=== PATIENT | male | born 1945 | race Caucasian/White ===

== ENCOUNTER 2020-02-19 11:02 | Outpatient (REF) | payer MEDICARE, OTHER, SELFPAY ==
--- NOTE | 2020-02-19 | PFT_ITS ---
INDICATION: Dyspnea. SPIROMETRY: The FEV1 to FVC is 73% with an FEV1 of 2.42 L which is 82% predicted and an FVC of 3.3 L which is 82% predicted. No significant response to bronchodilators noted. Maximum voluntary ventilation 71% predicted. LUNG VOLUMES: Total lung capacity 91% predicted. With an expiratory reserve volume of 22% predicted, likely secondary to an elevated BMI. DIFFUSION CAPACITY: DLCO 78% predicted. FLOW VOLUME LOOP: There is slight concavity to the expiratory limb suggestive of an obstructive process. INTERPRETATION: No definitive obstructive ventilatory defect. No significant response to bronchodilators noted. However, the patient does have a slight concavity to the expiratory limb suggesting an obstructive physiology. The lung volumes are within normal limits, except for decrease in the expiratory reserve volume secondary to an elevated BMI. The patient also has mild diffusion impairment, otherwise clinical correlation warranted. Alexys Okeefe MD MR/MODL / [id number]
== END 2020-02-19 11:03 | disposition home or self-care (01) ==
LOC: HO.RESP 11:02
PROVIDERS: Visit Provider Hospitalist
DX: J41.0 Simple chronic bronchitis (principal)
CPT/HCPCS: 94060; 94727; 94729

== ENCOUNTER → 2020-03-26 08:52 | Outpatient (BNVA) | payer MEDICARE, OTHER, SELFPAY | PROVIDERS: PCP Internal Medicine; Visit Provider Hospitalist | DX: J44.9 Chronic obstructive pulmonary disease, unspecified (principal); R91.1 Solitary pulmonary nodule; I25.10 Atherosclerotic heart disease of native coronary artery without angina pectoris; Z79.82 Long term (current) use of aspirin; Z79.899 Other long term (current) drug therapy | CPT/HCPCS: Q3014 ==

== ENCOUNTER → 2020-05-10 14:38 | Outpatient (BNVA) | payer MEDICARE, OTHER, SELFPAY | PROVIDERS: PCP Internal Medicine; Visit Provider Hospitalist | DX: Z13.89 Encounter for screening for other disorder (principal) | CPT/HCPCS: Q3014 ==

== ENCOUNTER 2020-05-21 09:07 | Outpatient (REF) | payer MEDICARE, OTHER, SELFPAY ==
--- NOTE | 2020-05-21 07:43 | PE_ITS ---
EXAMINATION: Fluorine-18 FDG PET/CT Scan CLINICAL INDICATION: Initial treatment management. Pulmonary nodule. PROCEDURE: 75 minutes following the intravenous administration of 19.1 mCi of fluorine 18 FDG, images from the base of the skull to the mid thighs were obtained using a combined PET/CT scanner with CT scan based attenuation correction. No intravenous contrast was administered. No oral contrast was administered. Transverse, coronal, sagittal, and volume reconstruction projections were obtained. The patient's blood glucose as determined by a finger stick, was 120 mg/dl immediately prior to injection. Total CT exam dose-length product 191.72 mGy-cm * These CT images were obtained using dose optimization techniques as appropriate, variously including the following: Automated exposure control * Adjustment of mA and/or kV according to patient size (this includes techniques or standardized protocols for targeted exams where dose is matched to indication/reason for exam; i.e. extremities or head) * Use of iterative reconstruction technique COMPARISON: A limited FDG cardiac PET/CT dated 09/11/2019 is available for comparison. No previous FDG skull base to mid thigh PET/CT scan is available for comparison. CT scan of the chest dated 05/08/2020 is available for comparison. FINDINGS: (Slice numbers described in this report are numbered superiorly to inferiorly with slice #1 in the head) NECK AND VISUALIZED HEAD: No foci of abnormal FDG activity are noted. The distribution of FDG activity is physiological. There is no cervical lymphadenopathy. THORAX: There is a pleural-based irregular nodule abutting the posterior pleura of the right lower lobe which show weak FDG activity, SUVmax 1.8, slice 92/267. This nodule measures approximately 1.7 x 0.8 cm in largest transverse dimensions on the CT images and approximately 1.0 cm cephalocaudad. It does not appear significantly changed from the 05/08/[address] scan. No additional pulmonary nodules are visualized. There are no additional foci of abnormally increased FDG activity in the chest. There is some atelectasis anterolaterally in the left upper lobe extending to the pleura with weak FDG activity, SUVmax 1.3, slice 89/267. This is new since 05/08/2020. No additional foci of abnormal FDG activity are present in the chest. No mediastinal, supraclavicular, or axillary lymphadenopathy is present. A left anterior chest pacemaker and associated leads are noted. This causes significant beam hardening artifact in adjacent regions of the chest. There is no pleural or pericardial fluid, or pneumothorax. ABDOMEN AND PELVIS: No foci of abnormal FDG activity are present in the abdomen or pelvis. There is diffuse FDG activity of varying intensities throughout the gastrointestinal tract without a suspicious focal component, likely physiological. There is diverticulosis without evidence of diverticulitis. The hollow viscera are otherwise unremarkable. The liver and spleen are unremarkable. The gallbladder has been resected and there are multiple metallic clips in the gallbladder bed. There is a 3.4 cm hypodense cyst present posterolaterally in the lower pole of the right kidney and a 3.0 hyperdense cyst posteromedially in the lower pole of the left kidney. Both of these are markedly FDG photopenic. The cysts are unchanged from the 05/08/2020 CT scan, and the report of that study indicates the hyperdense cyst was compatible with a renal cyst on prior renal mass protocol CT, but that study is not available for review. The left kidney is mildly atrophic contains a hypodense exophytic 2.2 cm cyst extending anterolaterally off the lower pole, markedly FDG photopenic, but this kidney is otherwise unremarkable. The adrenal glands and pancreas are unremarkable. The prostate is enlarged and bulges into the base of the urinary bladder and measures 6.1 cm in largest transverse dimensions. The pelvic organs are otherwise unremarkable. There is no retroperitoneal, mesenteric, pelvic or inguinal lymphadenopathy. MUSCULOSKELETAL: No foci of abnormal FDG activity are present in the osseous structures. There are diffuse degenerative changes in the spine most prominently a bridging osteophyte across the anterior aspect of the T7-T8 disc space at that the L4-L5 disc space. No suspicious sclerotic or lytic lesions are visualized. VASCULAR: Diffuse vascular calcifications including dense coronary calcifications are noted. 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 PET/PET CT fusion skull to thigh IMPRESSION: 1. The previously visualized posterior pleural-based right lower lobe pulmonary nodule shows weak FDG activity, suggesting a benign etiology. However because approximately 10% of pulmonary malignancies demonstrate no abnormal FDG activity, if biopsy of this nodule is not obtained, followup with diagnostic CT scan in 3 months is recommended. 2. A small new region of atelectasis in the left upper lobe has developed since the prior 05/18/2020 CT scan and is nonspecific. 3. Bilateral renal cysts are present and all are photopenic on the FDG PET images and probably represent simple cysts. Correlation with prior renal mass CT referred to in the report of the 05/08/2020 CT of the chest, but not available for review, is recommended to determine stability of these lesions. 4. No additional abnormalities suspicious for metastatic or other malignant lesions are noted. 5. Diffuse vascular calcifications including dense coronary calcifications and aneurysmal dilatation of the right common iliac artery are noted.
== END 2020-05-21 09:08 | disposition home or self-care (01) ==
LOC: HO.PET 09:07
PROVIDERS: Visit Provider Hospitalist
DX: Z13.89 Encounter for screening for other disorder (principal)

== ENCOUNTER → 2020-05-27 09:29 | Outpatient (BNVA) | payer MEDICARE, OTHER, SELFPAY | PROVIDERS: PCP Internal Medicine; Visit Provider Hospitalist | DX: R91.8 Other nonspecific abnormal finding of lung field (principal); J41.8 Mixed simple and mucopurulent chronic bronchitis; R91.1 Solitary pulmonary nodule; N28.9 Disorder of kidney and ureter, unspecified | CPT/HCPCS: 99212 ==

== ENCOUNTER 2020-11-25 10:00 | Outpatient (REF) | payer MEDICARE, OTHER, SELFPAY ==
--- NOTE | ~2020-11-25 | CT_ITS ---
EXAMINATION: CT CHEST WITHOUT CONTRAST CLINICAL INFORMATION: Follow-up pulmonary nodule COMPARISON: Outside chest CT May 2020 and PET/CT May 2020 TECHNIQUE: Multidetector volumetric CT imaging of the chest was done. Axial MIP volume rendering provided. Sagittal and coronal reformatted images were obtained. This CT examination was performed using dose optimization techniques as appropriate, variously including the following: *Automated exposure control *Adjustment of mA and/or kV according to patient size (this includes techniques or standardized protocols for targeted exams where dose is matched to indication/reason for exam; i.e. extremities or head) *Use of iterative reconstruction technique DLP: 265 mGy-cm FINDINGS: LUNGS: The peripheral or subpleural semisolid irregularly-shaped nodule in the right lower lobe measures 1.6 x 2.3 cm axial image 243 series 7 compared to maximum 1.4 x 2.1 cm by my measurements axial image 60 series 301/07/2020 exam. Differences in measurements may be due to a difference in slice thickness. The lesion appears less dense on the current exam however this may be due to difference in slice thickness as well. There may be a 2 mm peripheral or subpleural right lower lobe axial image 235 series 7 that is stable. There is a 3 mm right upper lobe nodule axial image 42 series 7 that is stable. There is scarring or subsegmental atelectasis at the lung bases. No endobronchial or endotracheal lesion is seen. MEDIASTINUM: The heart is upper normal in size. There is a left subclavian defibrillator that appears unchanged. There is severe coronary artery calcification. There is no pericardial effusion. The aorta is normal in caliber. There are no enlarged hilar or mediastinal lymph nodes. PLEURA: There is no pleural effusion. No pleural mass or thickening. AXILLA: No lymphadenopathy. UPPER ABDOMEN: The gallbladder has been removed. There are calcifications in the pancreas suggestive of chronic pancreatitis. There is higher low-attenuation renal lesions probably representing simple and hyperdense cysts that are stable. There are multiple calcifications are outside the upper pole the right kidney that are stable. There is diverticulosis of the colon. OSSEOUS STRUCTURES: There are degenerative changes of the spine. CT/CT chest wo con IMPRESSION: Question slight interval increase in size and decrease in density in the the irregularly-shaped peripheral or subpleural nodule in the right lower lobe. Differential in measurement and density may be due to difference in available slice thickness on outside exam May 2020. Severe coronary artery calcification and slightly enlarged heart. Stable abdominal findings.
== END 2020-11-25 10:01 | disposition home or self-care (01) ==
LOC: HO.CT 10:00
PROVIDERS: Visit Provider Hospitalist
DX: R91.8 Other nonspecific abnormal finding of lung field (principal)
CPT/HCPCS: 71250

== ENCOUNTER → 2020-12-24 09:56 | Outpatient (BNVA) | payer MEDICARE, OTHER, SELFPAY | PROVIDERS: PCP Internal Medicine; Visit Provider Hospitalist | DX: R91.8 Other nonspecific abnormal finding of lung field (principal); J41.8 Mixed simple and mucopurulent chronic bronchitis; N28.9 Disorder of kidney and ureter, unspecified | CPT/HCPCS: 99212 ==

== ENCOUNTER 2021-02-25 09:51 | Outpatient (REF) | payer MEDICARE, OTHER, SELFPAY ==
--- NOTE | ~2021-02-25 | CT_ITS ---
EXAMINATION: CT CHEST WITHOUT CONTRAST CLINICAL INFORMATION: Follow-up pulmonary nodules COMPARISON: Previous chest CT October [address] May 2020 and PET/CT May 2020 and September 2019 TECHNIQUE: Multidetector volumetric CT imaging of the chest was done. Axial MIP volume rendering provided. Sagittal and coronal reformatted images were obtained. This CT examination was performed using dose optimization techniques as appropriate, variously including the following: *Automated exposure control *Adjustment of mA and/or kV according to patient size (this includes techniques or standardized protocols for targeted exams where dose is matched to indication/reason for exam; i.e. extremities or head) *Use of iterative reconstruction technique DLP: mGy-cm FINDINGS: SENIOR SOFTWARE MANAGER: 246 LUNGS: The heterogeneous or semisolid peripheral right lower lobe nodule does not appear appreciably changed in size from most recent exam October 2020. This measures 1.4 x 2.3 cm axial image 274 series 7. This is irregularly-shaped and has a cystic, groundglass attenuation and small denser more solid-appearing areas. Again, this is decreased in density and increased in size compared to prior exams from earliest available CT May 2020. Other small pulmonary nodules are stable. There is subsegmental atelectasis in the inferior segment of the lingula that is stable. There is compressive atelectasis of the medial right lower lobe adjacent to vertebral body bony osteophyte that is stable. MEDIASTINUM: The heart is upper normal in size. There is a left subclavian AICD. There is severe coronary artery calcification. There is no pericardial effusion. There are no enlarged hilar or mediastinal lymph nodes. The visualized thyroid gland is unremarkable. PLEURA: There is no pleural effusion. No pleural mass or thickening. AXILLA: There are small bilateral axillary lymph nodes. No chest wall mass or enlarged lymph nodes are seen. UPPER ABDOMEN: There is a 2.8 cm high attenuation right renal lesion probably representing a hyperdense cyst that is stable. There are additional smaller low-attenuation right renal lesions probably representing cysts that are stable as well. There is calcification in the pancreas suggestive of chronic pancreatitis. There are calcifications adjacent to the upper pole the right kidney and right lobe of the liver that are stable. The gallbladder is been removed. There is diverticulosis of the colon. OSSEOUS STRUCTURES: There are degenerative changes of the spine. There are old left rib fractures. CT/CT chest wo con IMPRESSION: Stable heterogeneous right lower lobe nodule from most recent exam October 2020 compared. Again, compared to older exams this is slightly increased in size and decreased in density. Other small pulmonary nodules are stable. Severe coronary artery calcification. Left subclavian AICD device. Stable abdominal findings.
== END 2021-02-25 09:52 | disposition home or self-care (01) ==
LOC: HO.CT 09:51
PROVIDERS: Visit Provider Hospitalist
DX: R91.8 Other nonspecific abnormal finding of lung field (principal)
CPT/HCPCS: 71250

== ENCOUNTER → 2021-04-16 10:18 | Outpatient (BNVA) | payer MEDICARE, OTHER, SELFPAY | PROVIDERS: PCP Internal Medicine; Visit Provider Hospitalist | DX: R91.8 Other nonspecific abnormal finding of lung field (principal) | CPT/HCPCS: Q3014 ==

== ENCOUNTER 2021-08-12 09:09 | Outpatient (REF) | payer MEDICARE, OTHER, SELFPAY ==
--- NOTE | ~2021-08-12 | CT_ITS ---
EXAMINATION: CT CHEST WITHOUT CONTRAST CLINICAL INFORMATION: Solitary pulmonary nodule COMPARISON: CT chest 02/25/2021, 11/25/2020, 05/08/2020, PET/CT 05/21/2020 TECHNIQUE: Multidetector volumetric CT imaging of the chest was done. Axial MIP volume rendering provided. Sagittal and coronal reformatted images were obtained. This CT examination was performed using dose optimization techniques as appropriate, variously including the following: *Automated exposure control *Adjustment of mA and/or kV according to patient size (this includes techniques or standardized protocols for targeted exams where dose is matched to indication/reason for exam; i.e. extremities or head) *Use of iterative reconstruction technique DLP: 241 mGy-cm FINDINGS: CHEST WALL/AXILLA: No axillary lymphadenopathy. Left chest wall single lead cardiac AICD lead terminating in the right ventricle. LUNGS: Respiratory motion on today's exam somewhat limits evaluation. When accounting for motion on today's exam stable 4 mm solid right middle lobe pulmonary nodule, 5:339, previously 4 mm. Stable 4 mm subpleural right upper lobe pulmonary nodule unchanged from prior, 5:122, previously 4 mm. The right lower lobe groundglass pulmonary nodule measures approximately 1.6 x 1.4 cm, previously 1.8 x 1.4 cm, and appears decreased in density with no solid components appreciated on today's exam, although today's exam is motion degraded. MEDIASTINUM: Heart is normal in size. No mediastinal lymphadenopathy. Lack of intravenous contrast limits assessment for hilar adenopathy. High attenuation along the course of the coronary arteries may reflect comminution of coronary artery calcification and coronary artery stents. PLEURA: There is no pleural effusion. UPPER ABDOMEN: Partially imaged hyperdense 2.9 cm right renal lesion not appreciably changed from prior, previously photopenic on prior PET/CT which may reflect a hyperdense renal cyst, which could be confirmed with a renal ultrasound. Few stable calcifications are noted adjacent to the posterior margin of the right hepatic lobe unchanged from prior, also previously photopenic. Subcentimeter peripherally calcified exophytic right renal lesion may reflect a peripherally calcified cyst although is overall too small to definitively characterize. Status post cholecystectomy. OSSEOUS STRUCTURES: Remote left rib fracture deformities. CT/CT chest wo con IMPRESSION: Respiratory motion on today's exam somewhat limits evaluation. The right lower lobe groundglass pulmonary nodule measures approximately 1.6 cm, similar to possibly slightly decreased in size from prior where it measured 1.8 cm when measured in a similar fashion and appears decreased in density with no solid components appreciated on today's exam, although today's exam is motion degraded which limits accuracy of this comparison. Recommend continued imaging surveillance. Remainder small solid pulmonary nodules measuring up to 4 mm are unchanged from prior. Partially imaged hyperdense 2.9 cm right renal lesion not appreciably changed from prior, previously photopenic on prior PET/CT which may reflect a hyperdense renal cyst, which could be confirmed with a renal ultrasound.
== END 2021-08-12 09:10 | disposition home or self-care (01) ==
LOC: HO.CT 09:09
PROVIDERS: PCP Internal Medicine; Visit Provider Hospitalist
DX: R91.1 Solitary pulmonary nodule (principal); Z95.810 Presence of automatic (implantable) cardiac defibrillator
CPT/HCPCS: 71250

== ENCOUNTER → 2022-05-25 14:03 | Outpatient (BNVA) | payer MEDICARE, OTHER, SELFPAY | PROVIDERS: PCP Internal Medicine; Visit Provider Hospitalist | DX: J41.8 Mixed simple and mucopurulent chronic bronchitis (principal); R91.1 Solitary pulmonary nodule; N28.9 Disorder of kidney and ureter, unspecified | CPT/HCPCS: 99212 ==

== ENCOUNTER 2022-08-03 10:20 | Outpatient (REF) | payer MEDICARE, OTHER, SELFPAY ==
--- NOTE | ~2022-08-03 | CT_ITS ---
EXAMINATION: CT CHEST WITHOUT CONTRAST CLINICAL INFORMATION: Other nonspecific abnormal finding of lung field. COMPARISON: None available. TECHNIQUE: Multidetector volumetric CT imaging of the chest was done. Axial MIP volume rendering provided. Sagittal and coronal reformatted images were obtained. This CT examination was performed using dose optimization techniques as appropriate, variously including the following: *Automated exposure control *Adjustment of mA and/or kV according to patient size (this includes techniques or standardized protocols for targeted exams where dose is matched to indication/reason for exam; i.e. extremities or head) *Use of iterative reconstruction technique DLP: 230 mGy-cm FINDINGS: LUNGS: The exam is limited due to respiratory motion artifact. The pulmonary nodules are stable. Largest pulmonary nodule is a heterogeneous right lower lobe nodule measuring 1.7 cm, axial image 355 series 5. This does not appear appreciably changed. There is right lower lobe bronchial wall thickening. No endobronchial or endotracheal lesion. MEDIASTINUM: Left subclavian AICD device with tip projecting over the ventricular apex. Upper normal heart size. Severe coronary artery calcification. No pericardial effusion. No enlarged hilar or mediastinal lymph nodes. Normal caliber thoracic aorta. CORONARY ARTERY CALCIFICATION: Severe PLEURA: There is no pleural effusion. No pleural mass or thickening. AXILLA: No lymphadenopathy. UPPER ABDOMEN: Post cholecystectomy. Stable calcifications adjacent to the right lobe of the liver and right kidney. Stable 2.8 cm high attenuation right renal lesion probably representing a hyperdense cyst. Stable smaller right renal simple cysts. Small calcifications in the pancreas suggestive of evidence of chronic pancreatitis. Diverticulosis. OSSEOUS STRUCTURES: Degenerative changes of the spine. CT/CT chest wo IV con IMPRESSION: Limited exam due to respiratory motion. Stable pulmonary nodules. Mild right lower lobe bronchial wall thickening. Fleischner guidelines were followed.
== END 2022-08-03 10:21 | disposition home or self-care (01) ==
LOC: HO.CT 10:20
PROVIDERS: PCP Internal Medicine; Visit Provider Hospitalist
DX: R91.8 Other nonspecific abnormal finding of lung field (principal)
CPT/HCPCS: 71250

== ENCOUNTER 2023-05-25 11:03 | Outpatient (AMB) | payer MEDICARE, OTHER, SELFPAY ==
--- NOTE | 2023-05-25 11:12 | A.OFFVIS_ITS ---
Intake Vital Signs 05/25/23 11:13 Height 5 ft 9 in Weight 220 lb BMI 32.5 Pulse 89 Pulse Source Pulse Oximeter Pulse Oximetry (%) 95 Oxygen Delivery Method Room Air Intake Visit Reasons: Pulm Nodule All Around Presser Required: No Allergies codeine Allergy (Severe, Verified 05/25/23 11:14) Hallucinations HPI HPI Comments History of Present Illness Details The patient is 77-year-old gentleman known history CAD, renal cancer status post nephrectomy and COPD. Apparently back in August the patient did undergo a ICD placement while he was having sustained V-tach. Subsequently in October the patient has an EMS called to his home because firing of the ICD. He was admitted to [facility] where he had mapping and ultimately had ablation of his heart in a replacement lead to the ICU. Overall his respiratory status has been improving. He did undergo a cardiac PET to further address his cardiomyopathy. It did case picker at 9 mm pulmonary nodule in his right lower lobe that was mildly PET avid with an SUV of 1.1. Patient has been coughing more after his ablation procedure. Is been congested with some mucus production. The mucus is clear to yellow. Eyuc-lq-crbqsuxy severity he has also been noticing some wheezing at nighttime. 03/26/2020 the patient has a telephone v isit. Overall the patient has been doing well. He is responding well to the respiratory therapy. Still has some dyspnea on exertion. Mild in severity. Has been staying home because of the COVID-19 infections. In the meantime we talked about his previous CT scan of the chest. He has underlying pulmonary nodules that need follow-up. His primary care doctor did request 1 but the patient was concerned about leaving his house. Therefore we will reschedule the CT scan for early 2020. Hopefully by then he should be able to have his CT scan safely. In the meantime he is going to continue with the current respiratory regimen. Otherwise the patient has no other complaints. 05/10/2020 the patient is a telephone vi sit today. Overall the patient has been doing well from a respiratory status. He did undergo a CT scan of the chest demonstrating interval worsening of his pulmonary nodule in addition to new nodules also developing in same area the right lower lobe, measuring 2.1 cm and 1.4 cm respectively. In addition to that appears to have a renal lesion that may be increasing in size as well. All these findings are concerning. The patient also has significant cardiac disease and therefore is high risk for any surgical or his invasive interventions. Therefore I believe performing a PET scan to assess these nodular densities in to figure out the best place to biopsy with high see you will be important. The patient was supposed to undergo a orthopedic surgical intervention. My recommendation is for him to hold off any elective surgeries up to a complete evaluation of his worsening pulmonary nodules which are very concerning for cancer. 09[facility] Overall he is feeling okay. Continues to have a ongoing cough. Moderate severity. At times is productive. Usually white phlegm. He has been on multiple inhalers in the past. He is not interested in having maintenance inhalers at this time. He is willing to take a rescue inhaler in case he has any worsening symptoms. He also had his PET scan. We personally reviewed here in the office. The largest nodule which is in the right lower lobe measuring 2.1 cm found to have a low FDG suggesting a benign process or a smoldering cancer. At this point the area had grown in size and it subsolid in nature. Therefore, will have a repeat CT scan in 6 months to see if there is any worsening. If there is any increased size of the nodular density independent of the PET scan the patient should undergo some type of diagnostic intervention. He also underlying renal cyst. The PET scan was reassuring with the renal findings. However, he should follow up with his urologist. Otherwise patient is without any complaints. 12/24/2020 the patient is here for a [facility] follow[facility] visit. Overall the patient has been doing well. He continues to have a cough but yakw-uk-nnzkqnaa severity. He has been sedentary lately. He has gained some weight. He has not been as active as he should. We did talk about his weight gain being an an issue that could potentially make his breathing worse. He does have issues with his knees. In the meantime he did undergo a CT scan of the chest that we personally reviewed. It appears that the nodular density in the right hemithorax is changing. It appeared increase in size longitudinally but appears to have decrease in his width. However, smoldering malignancies still in differential. I will have him repeat CT scan in 3 months. In the meantime I will discuss him in the lung cancer screening program. In the meantime also w ill provide him with inhaled cortical steroid in case is an inflammatory process and I will mail her blood work for him to have looking for inflammatory conditions. Follow-up in [address] if the tumor conference feels otherwise will make the recommendations clear to the patient and his . 04/16/2021 the patient has a telehealth visit today. He had a regular appointment but he started developing URI like symptoms. He was COVID tested which was negative. He does have a congested cough with yellow phlegm. Prki-tu-jrcoseag severity. He has been taking cfgk-bfb-qvthije cough syrup. He denies any fevers or chills. In meantime back in January he did get a CT scan of the chest to further address the pulmonary nodule in the right hemithorax. It appears that the nodule has not changed since last CT scan 3 months ago. This is reassuring although this nodule has had some interval changes throughout the year. Therefore will follow-up with a CT scan in 6 months. In the meantime was in a Z-Robe disease in case he is developing a bacterial infection he is able to treat that. Will follow-up in 6 months or sooner if he develops any worsening symptoms. 05/25/2022 the patient is here for a pulmonary follow-up visit. The patient continues to do very well. Denies any significant shortness of breath. He does complaint of productive cough. A daily basis. Bcap-bb-ofwsqrgn. He does have a Flovent inhaler and also rescue inhaler although he does not using. Patient may have a component of allergies. Therefore adding Singulair may be a good option. In the meantime we did review his last CT scan of the chest. His last CT scan was from August 2021 demonstrating a ground glassy nodular density in that right lower lobe. Therefore, will go ahead and repeat the CT scan August 2022 for yearly follow-up. The nodule has not changed will his decrease in size we will just follow it as needed. He also has a renal malignancy that was already to intervene done. The patient does have a follow-up with Urology in a repeat CT scan as well. Otherwise patient is without any other complaints. Will follow-up in a year's time Or sooner if his CT scan of the chest is abnormal and requires further attention. 05/25/2023 the patient is here for a pulm onary follow-up visit. The patient has been doing fairly well. He has had a cough. At times is productive with yellow sputum. Positive sick contacts in the family. In addition to that the patient has been followed closely for his the radio renal cancer. He recently had a CT scan of the abdomen back on 05/14/2019 for any followed up with his urologist. It demonstrated stability in the renal issues however, it was mentioned that there was a slight opacity in the right lung base that was incompletely visu alized. This brought up the question of infectious versus inflammatory versus cancer. We did review his previous CT scans and he did not have any findings of sore. Therefore is a new finding. Is very vague. Best evaluated in the sagittal views. The patient did have previous CT scans with multiple pulmonary nodules. These have been stable throughout the years. Will go ahead and treat him for a lower respiratory infection and plan to repeat the CT scan in 6-8 weeks to make sure that there is resolution of the right lower lobe process. If the areas to abnormal or any concerning findings that will have to address that issue further. [facility] Medical History (Updated 05/25/22 @ 21:30 by Alexys Okeefe MD) Hyperlipidemia Hypertension BPH (benign prostatic hyperplasia) Glaucoma Obesity Former smoker, stopped smoking in distant past ICD (implantable cardioverter-defibrillator) in place Renal lesion Pulmonary nodules COPD (chronic obstructive pulmonary disease) Surgical History (Updated 12/26/20 @ 10:04 by Elly Vilchis PA-C) History of cardiac radiofrequency ablation History of implantable cardiac defibrillator (ICD) History of cholecystectomy History of prostate biopsy History of colonoscopy Social History (Updated 12/24/20 @ 10:03 by THERESE Reddy) Patient Tobacco Use Status: Former Tobacco user Tobacco use type: Cigarette Years Smoked: 30 years Review of Systems Const Denies night sweats ENT Denies change in voice, Denies lip swelling, Denies mouth pain, Reports nasal congestion, Reports nasal discharge and Denies tongue swelling Card Denies chest pain and Reports dyspnea on exertion Resp Denies change in phlegm color, Reports chest congestion, Reports cough and Reports dyspnea on exertion GI Denies abdominal pain Musc Denies no additional complaints Neuro Denies Neuro-related abnormal movements Psych Denies no additional complaints Ruddy/Lymph Denies easy bleeding and Denies lymphadenopathy Aller/Immun Denies lip swelling and Denies tongue swelling Physical Exam Vital Signs: Last Vital Signs Pulse 89 05/25/23 11:13 Pulse Ox 95 05/25/23 11:13 Oxygen Delivery Method Room Air 05/25/23 11:13 BMI result Body Mass Index 32.5 Const General: alert HEENT General nose exam: Abnormal external nose present and Nasal discharge present Eyes Pupils: Equal, round and reactive pupils present Neck Neck: Yes normal visual inspection, Yes full ROM and Yes no lymphadenopathy Chest Chest palpation & inspection: normal inspection of the chest Resp Effort & Inspection: normal respiratory effort Auscultation: no rhonchi and diminished lung sounds Cardio Rate: regular rate Rhythm: regular rhythm Heart sounds: S1 normal heart sound present and S2 normal heart sound present GI Palpation (GI): Soft to palpation and nontender Auscultation: normal bowel sounds General: Yes no CVA tenderness Back/Spine/Pelvis Back: no CVA tenderness Skin General skin exam: rashes and/or lesions noted Neuro Cranial nerves: Yes Equal, round and reactive pupils present Assessment & Plan Assessment & Plan (1) COPD (chronic obstructive pulmonary disease): Code(s): J44.9 - Chronic obstructive pulmonary disease, unspecified Qualifiers: COPD type: chronic bronchitis Chronic bronchitis type: mixed simple and mucopurulent Qualified Code(s): J41.8 - Mixed simple and mucopurulent chronic bronchitis Plan: ALICJA as needed (2) Pulmonary nodule: Code(s): R91.1 - Solitary pulmonary nodule (3) Pulmonary nodules: Comment: Right lower lobe ground glass pulmonary nodule Code(s): R91.8 - Other nonspecific abnormal finding of lung field Plan Repeat CT scan of the chest in 6-8 weeks start Doxycycline x 10 days Flovent HFA in the morning ALICJA as needed continue Singulair Follow-up in 6 months or sooner if CT chest is abnormal Orders: Orders CT chest wo IV con 6 Weeks R91.8 - Other nonspecific abnormal finding of lung field Medications: New doxycycline hyclate 100 mg PO BID 20 caps 0RF 10 days Coding Level of Care Code Est Pt Level 4 (43501) Diagnoses Mixed simple and mucopurulent chronic bronchitis J41.8 COPD type: chronic bronchitis Chronic bronchitis type: mixed simple and mucopurulent Pulmonary nodule R91.1 Pulmonary nodules R91.8 Time Spent (min) 18
[2023-05-25 11:13] VITALS: PULSE 89; O2SAT 95; BMI 32.5
== END 2023-05-25 11:46 | disposition home or self-care (01) ==
PROVIDERS: PCP Internal Medicine; Visit Provider Hospitalist
DX: J41.8 Mixed simple and mucopurulent chronic bronchitis (principal); R91.1 Solitary pulmonary nodule; R91.8 Other nonspecific abnormal finding of lung field
CPT/HCPCS: 99214

== ENCOUNTER → 2023-05-25 11:03 | Outpatient (BNVA) | payer MEDICARE, OTHER, SELFPAY | PROVIDERS: PCP Internal Medicine; Visit Provider Hospitalist | DX: J41.8 Mixed simple and mucopurulent chronic bronchitis (principal); R91.8 Other nonspecific abnormal finding of lung field | CPT/HCPCS: 99212 ==

== ENCOUNTER 2023-07-06 07:55 | Outpatient (REF) | payer MEDICARE, OTHER, SELFPAY ==
--- NOTE | ~2023-07-06 | CT_ITS ---
EXAMINATION: CT CHEST WITHOUT CONTRAST CLINICAL INFORMATION: Pulmonary nodule follow-up COMPARISON: Chest CT August 03, 2022 TECHNIQUE: Multidetector volumetric CT imaging of the chest was done. Axial MIP volume rendering provided. Sagittal and coronal reformatted images were obtained. This CT examination was performed using dose optimization techniques as appropriate, variously including the following: *Automated exposure control *Adjustment of mA and/or kV according to patient size (this includes techniques or standardized protocols for targeted exams where dose is matched to indication/reason for exam; i.e. extremities or head) *Use of iterative reconstruction technique DLP: 234 mGy-cm FINDINGS: Central airways are patent. Subtle linear filling defects within the airways are nonspecific but statistically represent mucus. There is some mild peripheral mucous plugging also appreciated. Some bronchial wall thickening is also again appreciated diffusely. The lungs are adequately aerated. There is no lobar consolidation. No pleural effusion or pneumothorax. There is some mild lingular atelectasis versus scarring. Relatively stable size and appearance of the irregularly-shaped approximately 1.6 cm right lower lobe pulmonary nodule, previously 1.7 cm. A few other smaller pulmonary micronodules are also stable. No new suspicious pulmonary nodules visualized. The heart is at the upper limits of normal in size. Single lead AICD is present. Artery artery calcifications are noted. There is no pericardial effusion. Normal caliber thoracic aorta. No gross mediastinal or hilar lymphadenopathy. No pathologically enlarged axillary lymph nodes. Visualized portions of the upper abdomen demonstrate surgical changes consistent with prior cholecystectomy. There is fatty atrophy of the visualized pancreas with a few associated punctate calcifications suggesting chronic pancreatitis. Stable coarse calcifications associated with the right kidney and along the undersurface of the right hepatic lobe, nonspecific. Visualized loops of colon demonstrate diverticulosis without CT evidence to suggest active diverticulitis. Mild diffuse degenerative changes of the spine. CT/CT chest wo IV con IMPRESSION: Relatively stable size and appearance of irregularly-shaped approximately 1.6 cm right lower lobe pulmonary nodule, previously 1.7 cm. No new suspicious pulmonary nodules visualized. Fleischner guidelines were followed.
== END 2023-07-06 07:56 | disposition home or self-care (01) ==
LOC: HO.CT 07:55
PROVIDERS: PCP Internal Medicine; Visit Provider Hospitalist
DX: R91.8 Other nonspecific abnormal finding of lung field (principal)
CPT/HCPCS: 71250

== ENCOUNTER 2023-11-16 10:45 | Outpatient (AMB) | payer MEDICARE, OTHER, SELFPAY ==
--- NOTE | 2023-11-16 11:02 | A.OFFVIS_ITS ---
Vital Signs 11/16/23 11:03 Height 5 ft 9 in Weight 216 lb 0.848 oz BMI 31.9 BP 134/70 Blood Pressure Location Rt brachial Position Sitting Pulse 60 Pulse Source Pulse Oximeter Pulse Oximetry (%) 96 Oxygen Delivery Method Room Air Intake Visit Reasons: Pulm Nodule Drug And Alcohol Treatment Specialist Required: No Allergies codeine Allergy (Severe, Verified 11/16/23 11:06) Hallucinations HPI Comments Details: The patient is 78-year-old gentleman known history CAD, renal cancer status post nephrectomy and COPD. Apparently back in August the patient did undergo a ICD placement while he was having sustained V-tach. Subsequently in October the patient has an EMS called to his home because firing of the ICD. He was admitted to [facility] where he had mapping and ultimately had ablation of his heart in a replacement lead to the ICU. Overall his respiratory status has been improving. He did undergo a cardiac PET to further address his cardiomyopathy. 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 Patient has been coughing more after his ablation p rocedure. Is been congested with some mucus production. The mucus is clear to yellow. Ypff-dh-kqwocdbt severity he has also been noticing some wheezing at nighttime. 03/26/2020 the patient has a telephone visit. Overall the patient has been doing well. He is responding well to the respiratory therapy. Still has some dyspnea on exertion. Mild in severity. Has been staying home because of the COVID-19 infections. In the meantime we talked about his previous CT scan of the chest. He has underlying pulmonary nodules that need follow-up. His primary care doctor did request 1 but the patient was concerned about leaving his house. Therefore we will reschedule the CT scan for early 2020. Hopefully by then he should be able to have his CT scan safely. In the meantime he is going to continue with the current respiratory regimen. Otherwise the patient has no other complaints. 05/10/2020 the patient is a telephone visit today. Overall the patient has been doing well from a respiratory status. He did undergo a CT scan of the chest demonstrating interval worsening of his pulmonary nodule in addition to new nodules also developing in same area the right lower lobe, measuring 2.1 cm and 1.4 cm respectively. In addition to that appears to have a renal lesion that may be increasing in size as well. All these findings are concerning. The patient also has significant cardiac disease and therefore is high risk for any surgical or his invasive interventions. Therefore I believe performing a PET scan to assess these nodular densities in to figure out the best place to biopsy with high see you will be important. The patient was supposed to undergo a orthopedic surgical intervention. My recommendation is for him to hold off any elective surgeries up to a complete evaluation of his worsening pulmonary nodules which are very concerning for cancer. 09/19/2020 the patient is here for pulmonary follow-up visit. Overall he is feeling okay. Continues to have a ongoing cough. Moderate severity. At times is productive. Usually white phlegm. He has been on multiple inhalers in the past. He is not interested in having maintenance inhalers at this time. He is willing to take a rescue inhaler in case he has any worsening symptoms. He also had his PET scan. We personally reviewed here in the office. The largest nodule which is in the right lower lobe measuring 2.1 cm found to have a low FDG suggesting a benign process or a smoldering cancer. At this point the area had grown in size and it subsolid in nature. Therefore, will have a repeat CT scan in 6 months to see if there is any worsening. If there is any increased size of the nodular density independent of the PET scan the patient should undergo some type of diagnostic intervention. He also underlying renal cyst. The PET scan was reassuring with the renal findings. However, he should follow up with his urologist. Otherwise patient is without any complaints. 12/24/2020 the patient is here for a pulmonary follow-up visit. Overall the patient has been doing well. He continues to have a cough but zbto-cl-sqhhhuqt severity. He has been sedentary lately. He has gained some weight. He has not been as active as he should. We did talk about his weight gain being an an issue that could potentially make his breathing worse. He does have issues with his knees. In the meantime he did undergo a CT scan of the chest that we personally reviewed. It appears that the nodular density in the right hemithorax is changing. It appeared increase in size longitudinally but appears to have decrease in his width. However, smoldering malignancies still in differential. I will have him repeat CT scan in 3 months. In the meantime I will discuss him in the lung cancer screening program. In the meantime also will provide him with inhaled cortical steroid in case is an inflammatory process and I will mail her blood work for him to have looking for inflammatory conditions. Follow-up in [address] if the tumor conference feels otherwise will make the recommendations clear to the patient and his . 04/16/2021 the patient has a telehealth visit today. He had a regular appointment but he started developing URI like symptoms. He was COVID tested which was negative. He does have a congested cough with yellow phlegm. Kgbh-fp-hjtlhbmb severity. He has been taking xbxg-qbf-ffjydzb cough syrup. He denies any fevers or chills. In meantime back in January he did get a CT scan of the chest to further address the pulmonary nodule in the right hemithorax. It appears that the nodule has not changed since last CT scan 3 months ago. This is reassuring although this nodule has had some interval changes throughout the year. Therefore will follow-up with a CT scan in 6 months. In the meantime was in a Z-Robe disease in case he is developing a bacterial infection he is able to treat that. Will follow-up in 6 months or sooner if he develops any worsening symptoms. 05/25/2022 the patient is here for a pulmonary follow-up visit. The patient continues to do very well. Denies any significant shortness of breath. He does complaint of productive cough. A daily basis. Pyzm-oq-xmtaxnne. He does have a Flovent inhaler and also rescue inhaler although he does not using. Patient may have a component of allergies. Therefore adding Singulair may be a good option. In the meantime we did review his last CT scan of the chest. His last CT scan was from August 2021 demonstrating a ground glassy nodular density in that right lower lobe. Therefore, will go ahead and repeat the CT scan August 2022 for yearly follow-up. The nodule has not changed will his decrease in size we will just follow it as needed. He also has a renal malignancy that was already to intervene done. The patient does have a follow-up with Urology in a repeat CT scan as well. Otherwise patient is without any other complaints. Will follow-up in a year's time Or sooner if his CT scan of the chest is abnormal and requires further attention. 05/25/2023 the patient is here for a pulmonary follow-up visit. The patient has been doing fairly well. He has had a cough. At times is productive with yellow sputum. Positive sick contacts in the family. In addition to that the patient has been followed closely for his the radio renal cancer. He recently had a CT scan of the abdomen back on 05/14/2019 for any followed up with his urologist. It demonstrated stability in the renal issues however, it was mentioned that there was a slight opacity in the right lung base that was incompletely visualized. This brought up the question of infectious versus inflammatory versus cancer. We did review his previous CT scans and he did not have any findings of sore. Therefore is a new finding. Is very vague. Best evaluated in the sagittal views. The patient did have previous CT scans with multiple pulmonary nodules. These have been stable throughout the years. Will go ahead and treat him for a lower respiratory infection and plan to repeat the CT scan in 6-8 weeks to make sure that there is resolution of the right lower lobe process. If the areas to abnormal or any concerning findings that will have to address that issue further. 11/16/2023 the patient is here for a pulmonary follow-up visit. Overall the patient has been doing fairly well. He still has productive cough although has improved after the course of antibiotics. Denies any significant chest congestion at this time. Denies any significant weight loss or night sweats. He did have a CT scan of the chest in 07/21/2023 which was done at [facility]. We did personally reviewed and compared to previous CT scans. Still has this ground-glass the subsolid nodular density in the right lower lobe measuring about 1.7 cm in size. I do not see a solid component although I explained to the patient that this indeed may be premalignant condition. At any point that there is a solid component to this ground-glass the area then becomes a little bit more concerning. Therefore will going to continue to monitor closely and he should get another CT scan in July 2024, at which point he will come back for follow-up visit so we can compare. If the patient develops any worsening symptoms prior to that he will call for an earlier assessment. Otherwise will continue with current respiratory therapy along with allergy medicines. The patient will follow-up after his CT scan. [facility] Medical History (Updated 05/25/22 @ 21:30 by Alexys Okeefe MD) Hyperlipidemia Hypertension BPH (benign prostatic hyperplasia) Glaucoma Obesity Former smoker, stopped smoking in distant past ICD (implantable cardioverter-defibrillator) in place Renal lesion Pulmonary nodules COPD (chronic obstructive pulmonary disease) Surgical History (Updated 12/26/20 @ 10:04 by Elly Vilchis PA-C) History of cardiac radiofrequency ablation History of implantable cardiac defibrillator (ICD) History of cholecystectomy History of prostate biopsy History of colonoscopy Social History (Updated 12/24/20 @ 10:03 by THERESE Reddy) Patient Tobacco Use Status: Former Tobacco user Tobacco use type: Cigarette Years Smoked: 30 years Review of Systems Const Denies night sweats ENT Denies change in voice, Denies lip swelling, Denies mouth pain, Reports nasal congestion, Reports nasal discharge and Denies tongue swelling Card Denies chest pain and Reports dyspnea on exertion Resp Denies change in phlegm color, Denies chest congestion, Reports cough and Reports dyspnea on exertion GI Denies abdominal pain Musc Denies no additional complaints Neuro Denies Neuro-related abnormal movements Psych Denies no additional complaints Ruddy/Lymph Denies easy bleeding and Denies lymphadenopathy Aller/Immun Denies lip swelling and Denies tongue swelling Physical Exam Vital Signs: Last Vital Signs Pulse 60 11/16/23 11:03 BP 134/70 11/16/23 11:03 Pulse Ox 96 11/16/23 11:03 Oxygen Delivery Method Room Air 11/16/23 11:03 BMI result Body Mass Index 31.9 Const General: alert HEENT General nose exam: Abnormal external nose present and Nasal discharge present Eyes Pupils: Equal, round and reactive pupils present Neck Neck: Yes normal visual inspection, Yes full ROM and Yes no lymphadenopathy Chest Chest palpation & inspection: normal inspection of the chest Resp Effort & Inspection: normal respiratory effort Auscultation: no rhonchi and diminished lung sounds Cardio Rate: regular rate Rhythm: regular rhythm Heart sounds: S1 normal heart sound present and S2 normal heart sound present GI Palpation (GI): Soft to palpation and nontender Auscultation: normal bowel sounds General: Yes no CVA tenderness Back/Spine/Pelvis Back: no CVA tenderness Skin General skin exam: rashes and/or lesions noted Neuro Cranial nerves: Yes Equal, round and reactive pupils present Results Reviewed Results Reviewed: [address] [address] [address] Scan Report Signed Patient: Rashad Myers V MR#: [id number] : 1945 Acct:[id number] Age/Sex: 77 / M ADM Date: 07/06/23 Loc: HO.CT Attending Dr: Alexys Okeefe MD Ordering Physician: Alexys Okeefe MD Date of Service: 07/06/23 Procedure(s): CT chest wo IV con Accession Number(s): [id number] cc: Alexsander Oreilly MD; Alexys Okeefe MD~ EXAMINATION: CT CHEST WITHOUT CONTRAST CLINICAL INFORMATION: Pulmonary nodule follow-up COMPARISON: Chest CT August 03, 2022 TECHNIQUE: Multidetector volumetric CT imaging of the chest was done. Axial MIP volume rendering provided. Sagittal and coronal reformatted images were obtained. This CT examination was performed using dose optimization techniques as appropriate, variously including the following: *Automated exposure control *Adjustment of mA and/or kV according to patient size (this includes techniques or standardized protocols for targeted exams where dose is matched to indication/reason for exam; i.e. extremities or head) *Use of iterative reconstruction technique DLP: 234 mGy-cm FINDINGS: Central airways are patent. Subtle linear filling defects within the airways are nonspecific but statistically represent mucus. There is some mild peripheral mucous plugging also appreciated. Some bronchial wall thickening is also again appreciated diffusely. The lungs are adequately aerated. There is no lobar consolidation. No pleural effusion or pneumothorax. There is some mild lingular atelectasis versus scarring. Relatively stable size and appearance of the irregularly-shaped approximately 1.6 cm right lower lobe pulmonary nodule, previously 1.7 cm. A few other smaller pulmonary micronodules are also stable. No new suspicious pulmonary nodules visualized. The heart is at the upper limits of normal in size. Single lead AICD is present. Artery artery calcifications are noted. There is no pericardial effusion. Normal caliber thoracic aorta. No gross mediastinal or hilar lymphadenopathy. No pathologically enlarged axillary lymph nodes. Visualized portions of the upper abdomen demonstrate surgical changes consistent with prior cholecystectomy. There is fatty atrophy of the visualized pancreas with a few associated punctate calcifications suggesting chronic pancreatitis. Stable coarse calcifications associated with the right kidney and along the undersurface of the right hepatic lobe, nonspecific. Visualized loops of colon demonstrate diverticulosis without CT evidence to suggest active diverticulitis. Mild diffuse degenerative changes of the spine. CT/CT chest wo IV con IMPRESSION: Relatively stable size and appearance of irregularly-shaped approximately 1.6 cm right lower lobe pulmonary nodule, previously 1.7 cm. No new suspicious pulmonary nodules visualized. Fleischner guidelines were followed. Dictated By: Alexsander Jackson MD Signed By: <Electronically signed by Alexsander Jackson MD in OV> 07/08/23917 DD/ TD/TT: Pick Up Man: PD Assessment & Plan Assessment & Plan (1) COPD (chronic obstructive pulmonary disease): Code(s): J44.9 - Chronic obstructive pulmonary disease, unspecified Category: Medical Qualifiers: COPD type: chronic bronchitis Chronic bronchitis type: mixed simple and mucopurulent Qualified Code(s): J41.8 - Mixed simple and mucopurulent chronic bronchitis Plan: ALICJA as needed (2) Pulmonary nodule: Code(s): R91.1 - Solitary pulmonary nodule Category: Medical (3) Pulmonary nodules: Comment: Right lower lobe ground glass pulmonary nodule Code(s): R91.8 - Other nonspecific abnormal finding of lung field Category: Medical Plan Repeat CT scan of the chest in 6-8 weeks stop Flovent HFA ALICJA as needed continue Singulair CT chest 07/2024 F/U in [address]: [address] chest wo IV con 07/02/24 R91.8 - Other nonspecific abnormal finding of lung field Coding Level of Care Code Est Pt Level 4 (80117) Diagnoses Mixed simple and mucopurulent chronic bronchitis J41.8 COPD type: chronic bronchitis Chronic bronchitis type: mixed simple and mucopurulent Pulmonary nodule R91.1 Pulmonary nodules R91.8 Time Spent (min) 17
[2023-11-16 11:03] VITALS: BP 134/70; PULSE 60; O2SAT 96; BMI 31.9
== END 2023-11-16 11:30 | disposition home or self-care (01) ==
PROVIDERS: PCP Internal Medicine; Visit Provider Hospitalist
DX: J41.8 Mixed simple and mucopurulent chronic bronchitis (principal); R91.1 Solitary pulmonary nodule; R91.8 Other nonspecific abnormal finding of lung field
CPT/HCPCS: 99214

== ENCOUNTER → 2023-11-16 10:45 | Outpatient (BNVA) | payer MEDICARE, OTHER, SELFPAY | PROVIDERS: PCP Internal Medicine; Visit Provider Hospitalist | DX: J41.8 Mixed simple and mucopurulent chronic bronchitis (principal); R91.1 Solitary pulmonary nodule; R91.8 Other nonspecific abnormal finding of lung field | CPT/HCPCS: 99212 ==